=== PATIENT | female | born 1995 | race Two or more races ===

== ENCOUNTER → 2019-07-11 | Outpatient (REF) | payer OTHER | LOC: M SFHCLERA 20:09 | PROVIDERS: ATTEND Nurse Practitioner Family | DX: J02.9 Acute pharyngitis, unspecified (principal) ==

== ENCOUNTER 2019-07-12 01:05 | Emergency (ER) | payer OTHER ==
[~2019-07-12] VITALS: Ht 162.6 cm; Wt 72.7 kg
[2019-07-12 01:06] VITALS: BP 124/65
== END 2019-07-12 03:05 | disposition left against medical advice (07) ==
LOC: M ED 01:05
DX: Z53.21 Procedure and treatment not carried out due to patient leaving prior to being seen by health care provider (principal)